=== PATIENT | male | born 1960 | race Caucasian/White ===

== ENCOUNTER 2020-07-06 10:45 | Day surgery (SDC) | payer OTHER ==
[~2020-07-06] VITALS: Ht 177.8 cm; Wt 70.6 kg
--- NOTE | 2020-07-06 12:54 | NUR ---
Ambulatory in Day Surgery. Surgical site prepped with 2% Chlorhexidine cloth wipe. History, Chart, Medications and Allergies reviewed before start of procedure. Patient confirms NPO status and agrees with scheduled surgery. Patient States Post-Procedure ride home has been arranged. Patient reports completing Chlorhexadine shower X2 prior to admission to hospital.
--- NOTE | 2020-07-06 15:59 | NUR ---
PT WAS A LITTLE TREMULOUS i HAD ASKED IF HE WAS COLD SEVERAL TIMES DURING RECOVERY HE STATED NO THAT HE GETS NERVOUS AND GETS " SHAKY" I ASKED WHAT WHAT MAKING HIM NERVOUS AND HE WAS UNSURE . TRIED TO REASSURE HE WANTED SOMETHING TO DRINK
--- NOTE | 2020-07-06 17:00 | NUR ---
Discharge instructions reviewed with patient. Patient verbalizes understanding. Copy given to patient to take home. Patient States Post-Procedure ride home has been arranged. Discharged via wheelchair to private car for ride home. Dressing to procedure site clean, dry, intact with no visible drainage, swelling, erythema or bruising noted. RX HARD COPY GIVEN TO PT
== END 2020-07-06 22:40 | disposition home or self-care (01) ==
LOC: ORSCMMR 10:45 → ORD 12:00 → ORSCMMR 12:00
PROVIDERS: Surgery
PROC: 0YU50JZ Supplement Right Inguinal Region with Synthetic Substitute, Open Approach (ICD-10-PCS; principal; 2020-07-06 12:00)
PROC: 8E0W0CZ Robotic Assisted Procedure of Trunk Region, Open Approach (ICD-10-PCS; principal; 2020-07-06 12:00)
DX: K40.91 Unilateral inguinal hernia, without obstruction or gangrene, recurrent (principal); J45.909 Unspecified asthma, uncomplicated
CPT/HCPCS: 49520; S2900; A9270-GY; C1781; J0690; J1100; J2250; J2370; J2405; J2704; J3010; J7120